=== PATIENT | male | born 1955 | race Caucasian/White ===

== ENCOUNTER 2016-11-28 08:55 | Emergency (ER) | payer MEDICARE, OTHER ==
--- NOTE | 2016-11-28 10:11 | RAD ---
History: Fever and cough for 2 days. Comparison: 03/26/2016. Technique: 2 views Findings: Images demonstrate a significant thoracolumbar scoliotic deformity with hardware fixation. The appearance is similar to that seen on prior examination. The heart size is appropriate. No focal infiltrate, effusion or pneumothorax is seen. The hilar and mediastinal structures are intact. Impression: 1. A prominent thoracic and lumbar scoliotic deformity with hardware fixation. 2. No active intrathoracic process.
== END 2016-11-28 10:37 | disposition home or self-care (01) ==
LOC: ED 08:55
DX: R05 Cough (principal); R50.9 Fever, unspecified; I25.2 Old myocardial infarction; G82.50 Quadriplegia, unspecified; F72 Severe intellectual disabilities

== ENCOUNTER 2016-12-01 20:11 | Emergency (ER) | payer MEDICARE, OTHER ==
[2016-12-01 21:09] LABS: ABSOLUTE NEUTROPHIL COUNT 5.7 K/mm3 (1.8-7.7); BASO % 0.3 % (0.2-1.0); EOS % 0.5 % (0.9-2.9); HEMATOCRIT 44.2 % (32.0-52.0); HEMOGLOBIN 14.6 gm/l (14.0-18.0); IMM NEUT% 0.5 % (0-1); LYMPH # 0.9 (1.0-4.8); LYMPH % 11.5 % (15-45); MEAN CELL VOLUME 94.2 fl (80.0-94.0); MEAN CORPUSCULAR HEMOGLOBIN 31.1 pg (27.0-31.0); MEAN PLATELET VOLUME 9.6 fl (7.4-10.4); MONO # 1.1 (0.0-0.8); MONO % 14.2 % (4-12); PLATELET COUNT 150 K/mm3 (130-400); RED CELL DISTRIBUTION WIDTH 13.1 % (11.5-14.5)
[2016-12-01 21:15] LABS: ALB/GLOB RATIO 1.1 (>1.0); ALBUMIN 3.5 gm/dL (3.5-5.7); CALCIUM 8.9 mg/dL (8.6-10.3)
--- NOTE | 2016-12-02 07:37 | RAD ---
CHEST-AP BEDSIDE COMPARISON: Chest 2 views, 11/28/2016 HISTORY: Cough. FINDINGS: Views: Frontal chest. Lungs: The lungs are clear. Heart and vessels: Normal Trachea and bronchi: Normal Mediastinum and lazaro: Surgical clips in the mediastinum. Costophrenic sulci: Normal Chest wall and bones: Sternotomy wires. Spinal instrumentation. Upper abdomen: Normal. IMPRESSION: 1. No acute finding. No evidence of pneumonia or pulmonary edema. 2. No change. Surgical clips in the mediastinum, sternotomy wires, and spinal instrumentation.
== END 2016-12-01 22:28 | disposition home or self-care (01) ==
LOC: ED 20:11
DX: R05 Cough (principal); R50.9 Fever, unspecified; I25.2 Old myocardial infarction; G82.50 Quadriplegia, unspecified; F72 Severe intellectual disabilities; H54.0 Blindness, both eyes